=== PATIENT | female | born 1985 | race Caucasian/White ===

== ENCOUNTER 2021-01-24 09:00 | Outpatient (CLI) | payer OTHER | END 2021-01-24 09:30 | disposition home or self-care (01) | LOC: PPH VACUNA 09:00 | PROVIDERS: ATTEND Emergency Medicine Pediatric Emergency Medicine | DX: Z23 Encounter for immunization (principal) ==

== ENCOUNTER 2023-06-27 09:23 | Outpatient (CLI) | payer OTHER | END 2023-06-27 09:24 | disposition home or self-care (01) | LOC: PRENATAL 09:23 | PROVIDERS: ATTEND Obstetrics & Gynecology Maternal & Fetal Medicine | DX: O35.3XX0 Maternal care for (suspected) damage to fetus from viral disease in mother, not applicable or unspecified (principal); O09.529 Supervision of elderly multigravida, unspecified trimester; O44.00 Complete placenta previa NOS or without hemorrhage, unspecified trimester; Z3A.19 19 weeks gestation of pregnancy ==